=== PATIENT | female | born 1955 | race Caucasian/White ===

== ENCOUNTER 2021-11-24 05:51 | Inpatient (IN) | payer OTHER ==
[~2021-11-24] VITALS: Ht 154.9 cm; Wt 122.9 kg
[~2021-11-24 05:51] MED LIST: COREG 3.125M3.125 MG PO; DIFLUCAN200 MG PO; DOXYCYCLINE HY100 MG PO; FLUOXETINE HCL20 MG PO; GABAPENTIN600 MG PO; KLONOPIN TAB 00.5 MG PO; LEVOTHYROXINE150 MCG PO; LIPITOR20 MG PO; LISINOPRIL5 MG PO; LORTAB 5-325 M1 EACH PO; MELOXICAM15 MG PO; METFORMIN HCL1000 MG PO; NOVOLOG MI100 UNIT/1 SQ; OMEPRAZOLE40 MG PO; PRIMIDONE50 MG PO; SPIRIVA HANDIH18 MCG INH
[2021-11-24 06:17] LABS: HEMOGLOBIN 15.6 gm/dl (12.3-15.3); RED BLOOD COUNT 4.96 M/UL (4.00-5.10); WHITE BLOOD COUNT 10.6 K/UL (4.5-11.0)
[2021-11-24] MEDS ORDERED: FUROSEMIDE40 MG PO (13:05)
[2021-11-24] MEDS ORDERED: PROAIR HFA8.5 GM INH (13:06)
[2021-11-24] MEDS ORDERED: BUTALB-ACETAMI1 EAC1 PO (13:07)
[2021-11-25 02:53] LABS: HEMOGLOBIN 14.5 gm/dl (12.3-15.3); RED BLOOD COUNT 4.73 M/UL (4.00-5.10); WHITE BLOOD COUNT 12.3 K/UL (4.5-11.0)
[2021-11-26 02:58] LABS: HEMOGLOBIN 14.3 gm/dl (12.3-15.3); RED BLOOD COUNT 4.68 M/UL (4.00-5.10)
[2021-11-26 03:02] LABS: WHITE BLOOD COUNT 9.2 K/UL (4.5-11.0)
[2021-11-26 03:35] LABS: BUN/CREATININE RATIO 16 (0-10)
--- NOTE | 2021-11-26 09:56 | NUR ---
PATIENT OXYGEN SATURATION MEASURED 83% ON ROOM AIR. RN REAPPLIED OXYGEN AT 4 LITERS NASAL CANNULA PER MD ORDER AND OXYGEN SATURATION RAISED ABOVE 90%. NO S/SX OF DISTRESS NOTED.
[2021-11-27 02:39] LABS: BUN/CREATININE RATIO 15 (0-10)
[2021-11-28 02:19] LABS: HEMOGLOBIN 14.2 gm/dl (12.3-15.3); RED BLOOD COUNT 4.67 M/UL (4.00-5.10); WHITE BLOOD COUNT 9.4 K/UL (4.5-11.0)
[2021-11-28 02:39] LABS: BUN/CREATININE RATIO 16 (0-10)
--- NOTE | 2021-11-28 11:48 | NUR ---
PT O2 SATURATION IS 80% ROOM AIR.
[2021-11-29 04:05] LABS: BUN/CREATININE RATIO 17 (0-10)
[2021-11-29] MEDS ORDERED: MEDROL DOSEPAK 24 MG PO (08:44)
[2021-11-29] MEDS ORDERED: IPRAT-ALBUT 0.5-3 ML NEB (08:44)
[2021-11-29] MEDS ORDERED: LISINOPRIL10 MG PO (08:47)
[2021-11-29] MEDS ORDERED: BUDESONIDE0.5 MG/2 M NEB (08:49)
[2021-11-29] MEDS ORDERED: ASPIRIN EC81 MG PO (08:49)
== END 2021-11-29 20:00 | disposition home or self-care (01) | DRG 291 ==
LOC: ER1 05:51 → M/S 08:28 → CDU 08:28 → M/S 13:40
PROVIDERS: Family Medicine; Internal Medicine; Physician Assistant; ADMIT Internal Medicine
PROC: B24BZZZ Ultrasonography of Heart with Aorta (ICD-10-PCS; principal; 2021-11-24)
DX: I11.0 Hypertensive heart disease with heart failure (principal); J96.21 Acute and chronic respiratory failure with hypoxia; J96.22 Acute and chronic respiratory failure with hypercapnia; I50.43 Acute on chronic combined systolic (congestive) and diastolic (congestive) heart failure; Z20.822 Contact with and (suspected) exposure to COVID-19; J44.1 Chronic obstructive pulmonary disease with (acute) exacerbation; C34.12 Malignant neoplasm of upper lobe, left bronchus or lung; E87.1 Hypo-osmolality and hyponatremia; R59.1 Generalized enlarged lymph nodes; G47.33 Obstructive sleep apnea (adult) (pediatric); E78.5 Hyperlipidemia, unspecified; E83.42 Hypomagnesemia; M10.9 Gout, unspecified; G43.909 Migraine, unspecified, not intractable, without status migrainosus; G25.0 Essential tremor; M54.50 Low back pain, unspecified; E66.01 Morbid (severe) obesity due to excess calories; F17.210 Nicotine dependence, cigarettes, uncomplicated; I08.1 Rheumatic disorders of both mitral and tricuspid valves; E11.9 Type 2 diabetes mellitus without complications; E03.9 Hypothyroidism, unspecified; Z86.73 Personal history of transient ischemic attack (TIA), and cerebral infarction without residual deficits; Z79.01 Long term (current) use of anticoagulants; Z79.82 Long term (current) use of aspirin; Z91.81 History of falling; Z90.710 Acquired absence of both cervix and uterus; Z82.49 Family history of ischemic heart disease and other diseases of the circulatory system; Z80.9 Family history of malignant neoplasm, unspecified; Z88.8 Allergy status to other drugs, medicaments and biological substances; Z88.6 Allergy status to analgesic agent; Z88.7 Allergy status to serum and vaccine
CPT/HCPCS: ECHO; 36415; 36600; 71045; 71250; 72100; 80048; 80053; 82550; 82553; 82803; 82962; 83036; 83605; 83735; 83880; 84484; 85025; 93005; 93306; 94640; 94664; 94760; 96374; 97110; 97116; 97116-GP-CQ; 97161; 97166; 97530-GP-CQ; 99285; J1205; J1940; J2920; J3475

== ENCOUNTER 2021-12-05 15:30 | Observation (INO) | payer OTHER ==
[~2021-12-05] VITALS: Ht 154.9 cm; Wt 136.5 kg
[~2021-12-05 15:30] MED LIST changes: +ASPIRIN EC81 MG PO; +BUDESONIDE0.5 MG/2 M NEB; +BUTALB-ACETAMI1 EAC1 PO; +FUROSEMIDE40 MG PO; +IPRAT-ALBUT 0.5-3 ML NEB; +LISINOPRIL10 MG PO; +MEDROL DOSEPAK 24 MG PO; +PROAIR HFA8.5 GM INH
[2021-12-05 16:15] LABS: HEMOGLOBIN 13.3 gm/dl (12.3-15.3); RED BLOOD COUNT 4.37 M/UL (4.00-5.10); WHITE BLOOD COUNT 7.8 K/UL (4.5-11.0)
[2021-12-05 16:42] LABS: BUN/CREATININE RATIO 23 (0-10)
[2021-12-06 09:35] LABS: BUN/CREATININE RATIO 17 (0-10)
[2021-12-07 03:43] LABS: BUN/CREATININE RATIO 17 (0-10)
[2021-12-08 06:02] LABS: HEMOGLOBIN 13.1 gm/dl (12.3-15.3); RED BLOOD COUNT 4.32 M/UL (4.00-5.10); WHITE BLOOD COUNT 9.3 K/UL (4.5-11.0)
--- NOTE | 2021-12-08 14:51 | NUR ---
CALLED TO GIVE REPORT TO HOME HEALTH SPOKE TO ANGEL, SHE STATED SHE WOULD HAVE THE ELECTRICAL AND INSTRUMENT TECHNICIAN NURSE TO CALL BACK, SPOKE TO HER AT 1400
== END 2021-12-09 18:58 | disposition home or self-care (01) ==
LOC: ER1 15:30 → MED SURG 4 21:08 → CDU 21:08 → MED SURG 4 21:08
PROVIDERS: Emergency Medicine; Internal Medicine; Internal Medicine Pulmonary Disease; Physician Assistant; ADMIT Internal Medicine
PROC: 0BB88ZX Excision of Left Upper Lobe Bronchus, Via Natural or Artificial Opening Endoscopic, Diagnostic (ICD-10-PCS; principal; 2021-12-07 09:45)
DX: C34.12 Malignant neoplasm of upper lobe, left bronchus or lung (principal); E87.1 Hypo-osmolality and hyponatremia; I11.0 Hypertensive heart disease with heart failure; I50.32 Chronic diastolic (congestive) heart failure; E78.5 Hyperlipidemia, unspecified; E83.42 Hypomagnesemia; J44.9 Chronic obstructive pulmonary disease, unspecified; J96.11 Chronic respiratory failure with hypoxia; E11.40 Type 2 diabetes mellitus with diabetic neuropathy, unspecified; G89.29 Other chronic pain; G25.0 Essential tremor; K21.9 Gastro-esophageal reflux disease without esophagitis; G43.909 Migraine, unspecified, not intractable, without status migrainosus; E66.2 Morbid (severe) obesity with alveolar hypoventilation; I69.351 Hemiplegia and hemiparesis following cerebral infarction affecting right dominant side; E03.9 Hypothyroidism, unspecified; M10.9 Gout, unspecified; Z68.43 Body mass index [BMI] 50.0-59.9, adult; Z79.82 Long term (current) use of aspirin; Z79.84 Long term (current) use of oral hypoglycemic drugs; Z79.890 Hormone replacement therapy; Z79.899 Other long term (current) drug therapy; Z87.891 Personal history of nicotine dependence
CPT/HCPCS: 36415; 36600; 70450; 71045; 72192; 73502; 73552; 73590; 73610; 73630; 80048; 80053; 80061; 81001; 82436; 82533; 82550; 82553; 82803; 82962; 83735; 83935; 84100; 84133; 84300; 84439; 84443; 84484; 85025; 93005; 94760; 96374; 96376; 99285; G0378; J1940; J2704; J3010; J3475; J7040

== ENCOUNTER 2021-12-14 17:30 | Inpatient (IN) | payer OTHER ==
[~2021-12-14] VITALS: Ht 152.4 cm; Wt 122.5 kg
[2021-12-14 18:19] LABS: HEMOGLOBIN 14.4 gm/dl (12.3-15.3); RED BLOOD COUNT 4.75 M/UL (4.00-5.10); WHITE BLOOD COUNT 16.2 K/UL (4.5-11.0)
[2021-12-14 19:09] LABS: BUN/CREATININE RATIO 13 (0-10)
[2021-12-15 04:56] LABS: WHITE BLOOD COUNT 14.8 K/UL (4.5-11.0)
[2021-12-15 05:08] LABS: HEMOGLOBIN 11.8 gm/dl (12.3-15.3); RED BLOOD COUNT 3.93 M/UL (4.00-5.10)
[2021-12-15 05:31] LABS: BUN/CREATININE RATIO 14 (0-10)
[2021-12-15] MEDS ORDERED: LISINOPRIL20 MG PO (10:23)
[2021-12-15] MEDS ORDERED: ASPIRIN EC81 MG PO (10:23)
[2021-12-15] MEDS ORDERED: BUDESONIDE0.5 MG/2 M INH (10:24)
[2021-12-15] MEDS ORDERED: IPRAT-ALBUT 0.5-3 ML INH (10:24)
[2021-12-16 05:03] LABS: HEMOGLOBIN 12.2 gm/dl (12.3-15.3); RED BLOOD COUNT 4.07 M/UL (4.00-5.10); WHITE BLOOD COUNT 15.6 K/UL (4.5-11.0)
[2021-12-17 04:47] LABS: HEMOGLOBIN 12.3 gm/dl (12.3-15.3); RED BLOOD COUNT 4.12 M/UL (4.00-5.10); WHITE BLOOD COUNT 15.6 K/UL (4.5-11.0)
[2021-12-17 05:24] LABS: BUN/CREATININE RATIO 33 (0-10)
[2021-12-18 04:10] LABS: HEMOGLOBIN 12.9 gm/dl (12.3-15.3); RED BLOOD COUNT 4.34 M/UL (4.00-5.10); WHITE BLOOD COUNT 17.8 K/UL (4.5-11.0)
[2021-12-18 04:33] LABS: BUN/CREATININE RATIO 30 (0-10)
[2021-12-19 06:28] LABS: HEMOGLOBIN 12.8 gm/dl (12.3-15.3); RED BLOOD COUNT 4.25 M/UL (4.00-5.10); WHITE BLOOD COUNT 16.2 K/UL (4.5-11.0)
[2021-12-19 13:08] LABS: BUN/CREATININE RATIO 23 (0-10)
[2021-12-21 06:00] LABS: HEMOGLOBIN 13.1 gm/dl (12.3-15.3); RED BLOOD COUNT 4.37 M/UL (4.00-5.10); WHITE BLOOD COUNT 16.5 K/UL (4.5-11.0)
[2021-12-21 06:22] LABS: BUN/CREATININE RATIO 23 (0-10)
[2021-12-23 04:57] LABS: HEMOGLOBIN 11.3 gm/dl (12.3-15.3)
[2021-12-23 05:02] LABS: RED BLOOD COUNT 3.79 M/UL (4.00-5.10); WHITE BLOOD COUNT 11.4 K/UL (4.5-11.0)
[2021-12-23 05:16] LABS: BUN/CREATININE RATIO 15 (0-10)
[2021-12-24 06:49] LABS: HEMOGLOBIN 11.9 gm/dl (12.3-15.3); RED BLOOD COUNT 4.01 M/UL (4.00-5.10); WHITE BLOOD COUNT 12.5 K/UL (4.5-11.0)
[2021-12-24 07:04] LABS: BUN/CREATININE RATIO 13 (0-10)
[2021-12-25 10:27] LABS: HEMOGLOBIN 12.2 gm/dl (12.3-15.3); RED BLOOD COUNT 4.03 M/UL (4.00-5.10); WHITE BLOOD COUNT 12.4 K/UL (4.5-11.0)
[2021-12-25 10:48] LABS: BUN/CREATININE RATIO 14 (0-10)
[2021-12-26 06:36] LABS: HEMOGLOBIN 11.8 gm/dl (12.3-15.3); RED BLOOD COUNT 3.99 M/UL (4.00-5.10)
[2021-12-26 06:37] LABS: WHITE BLOOD COUNT 15.8 K/UL (4.5-11.0)
[2021-12-26 07:19] LABS: BUN/CREATININE RATIO 17 (0-10)
[2021-12-27 06:25] LABS: HEMOGLOBIN 11.4 gm/dl (12.3-15.3); RED BLOOD COUNT 3.85 M/UL (4.00-5.10)
[2021-12-27 06:27] LABS: WHITE BLOOD COUNT 11.1 K/UL (4.5-11.0)
[2021-12-27 07:25] LABS: BUN/CREATININE RATIO 18 (0-10)
[2021-12-28 06:45] LABS: RED BLOOD COUNT 4.1 M/UL (4.00-5.10)
[2021-12-28 06:49] LABS: WHITE BLOOD COUNT 14.5 K/UL (4.5-11.0)
[2021-12-28 07:05] LABS: BUN/CREATININE RATIO 16 (0-10)
[2021-12-29 08:48] LABS: HEMOGLOBIN 12.3 gm/dl (12.3-15.3); RED BLOOD COUNT 4.15 M/UL (4.00-5.10); WHITE BLOOD COUNT 14.2 K/UL (4.5-11.0)
[2021-12-29 09:22] LABS: BUN/CREATININE RATIO 19 (0-10)
[2021-12-30 07:21] LABS: HEMOGLOBIN 10.8 gm/dl (12.3-15.3); RED BLOOD COUNT 3.77 M/UL (4.00-5.10)
[2021-12-30 07:23] LABS: WHITE BLOOD COUNT 8.1 K/UL (4.5-11.0)
[2021-12-30 07:44] LABS: BUN/CREATININE RATIO 18 (0-10)
[2021-12-31 06:15] LABS: HEMOGLOBIN 10.6 gm/dl (12.3-15.3); RED BLOOD COUNT 3.55 M/UL (4.00-5.10); WHITE BLOOD COUNT 8.5 K/UL (4.5-11.0)
[2021-12-31] MEDS ORDERED: ANUSOL HC SUPP1 SUPP PR (11:15)
[2021-12-31] MEDS ORDERED: KLONOPIN TAB 00.5 MG PO (11:15)
[2021-12-31] MEDS ORDERED: CARVEDILOL12.5 MG PO (11:15)
[2021-12-31] MEDS ORDERED: POLYETHYLENE GL17 GM PO (11:15)
[2021-12-31] MEDS ORDERED: HYDROCODON-ACE1 EAC2 PO (11:18)
[2021-12-31] MEDS ORDERED: PRAMIPEXOLE D0.25 MG PO (11:18)
[2021-12-31] MEDS ORDERED: SPIRIVA RESPIMAT4 GM INH (11:18)
[2021-12-31] MEDS ORDERED: DULERA 100 MCG8.8 GM INH (11:18)
[2021-12-31] MEDS ORDERED: NICOTINE PATCH1 EAC1 TOP (11:18)
[2021-12-31] MEDS ORDERED: LEVOFLOXACIN750 MG PO (11:20)
[2021-12-31] MEDS ORDERED: MAG-OX 400 TAB400 MG PO (11:20)
[2021-12-31] MEDS ORDERED: ZESTRIL2.5 MG PO (11:27)
== END 2021-12-31 20:10 | DRG 917 ==
LOC: ER1 17:30 → CDU 20:36 → MED SURG 4 20:36 → CCU 20:36 → MED SURG 4 12-17 17:52
PROVIDERS: Internal Medicine; Internal Medicine Pulmonary Disease; Nurse Practitioner; ADMIT Internal Medicine
PROC: 3E03329 Introduction of Other Anti-infective into Peripheral Vein, Percutaneous Approach (ICD-10-PCS; principal; 2021-12-14)
PROC: 5A09457 Assistance with Respiratory Ventilation, 24-96 Consecutive Hours, Continuous Positive Airway Pressure (ICD-10-PCS; 2021-12-14)
DX: T40.601A Poisoning by unspecified narcotics, accidental (unintentional), initial encounter (principal); A41.59 Other Gram-negative sepsis; G93.41 Metabolic encephalopathy; Z20.822 Contact with and (suspected) exposure to COVID-19; J18.9 Pneumonia, unspecified organism; J96.21 Acute and chronic respiratory failure with hypoxia; J96.22 Acute and chronic respiratory failure with hypercapnia; R65.20 Severe sepsis without septic shock; C34.90 Malignant neoplasm of unspecified part of unspecified bronchus or lung; E66.2 Morbid (severe) obesity with alveolar hypoventilation; I50.32 Chronic diastolic (congestive) heart failure; E87.1 Hypo-osmolality and hyponatremia; N17.9 Acute kidney failure, unspecified; I13.0 Hypertensive heart and chronic kidney disease with heart failure and stage 1 through stage 4 chronic kidney disease, or unspecified chronic kidney disease; J44.0 Chronic obstructive pulmonary disease with (acute) lower respiratory infection; C80.0 Disseminated malignant neoplasm, unspecified; N39.0 Urinary tract infection, site not specified; J44.1 Chronic obstructive pulmonary disease with (acute) exacerbation; K21.9 Gastro-esophageal reflux disease without esophagitis; E87.5 Hyperkalemia; E86.0 Dehydration; N18.32 Chronic kidney disease, stage 3b; E86.1 Hypovolemia; F17.210 Nicotine dependence, cigarettes, uncomplicated; E03.9 Hypothyroidism, unspecified; M10.9 Gout, unspecified; G25.81 Restless legs syndrome; E78.5 Hyperlipidemia, unspecified; G47.00 Insomnia, unspecified; R53.81 Other malaise; G89.29 Other chronic pain; M54.9 Dorsalgia, unspecified; E87.8 Other disorders of electrolyte and fluid balance, not elsewhere classified; G43.909 Migraine, unspecified, not intractable, without status migrainosus; G40.909 Epilepsy, unspecified, not intractable, without status epilepticus; E11.40 Type 2 diabetes mellitus with diabetic neuropathy, unspecified; Z79.4 Long term (current) use of insulin; Z86.73 Personal history of transient ischemic attack (TIA), and cerebral infarction without residual deficits; Z99.81 Dependence on supplemental oxygen; Z90.49 Acquired absence of other specified parts of digestive tract; Z83.3 Family history of diabetes mellitus; Z90.710 Acquired absence of both cervix and uterus; Z98.42 Cataract extraction status, left eye; Z98.41 Cataract extraction status, right eye; Z79.82 Long term (current) use of aspirin; Z79.01 Long term (current) use of anticoagulants
CPT/HCPCS: 36415; 36600; 51702; 70450; 71045; 71250; 72125; 80048; 80053; 80076; 80307; 81001; 82140; 82550; 82553; 82803; 82962; 83605; 83615; 83735; 84100; 84132; 84484; 85025; 85027; 85610; 85730; 86140; 87040; 87077; 87081; 87086; 87186; 93005; 94640; 94660; 94760; 96374; 97110; 97110-GP-CQ; 97116; 97162; 97166; 97530; 97530-GP-CQ; 97535; 99285; C9113; G0480; J0360; J0696; J1644; J2020; J2185; J2310; J2920; J3475; U0002